=== PATIENT | male | born 1975 | race Caucasian/White ===

== ENCOUNTER 2020-07-06 10:39 | Emergency (ER) | payer OTHER ==
[2020-07-06] MEDS ORDERED: AUGMENTIN 875-1 EACH PO (13:13)
== END 2020-07-06 13:42 | disposition home or self-care (01) ==
LOC: ER1 10:39
DX: S91.125A Laceration with foreign body of left lesser toe(s) without damage to nail, initial encounter (principal); W45.8XXA Other foreign body or object entering through skin, initial encounter; Y92.009 Unspecified place in unspecified non-institutional (private) residence as the place of occurrence of the external cause; Z23 Encounter for immunization; F17.210 Nicotine dependence, cigarettes, uncomplicated
CPT/HCPCS: 12001; 73630; 90471; 90715; 99283